=== PATIENT | female | born 1980 | race African-American/Black ===

== ENCOUNTER 2021-03-06 07:23 | Observation (INO) ==
[2021-03-06] MEDS ORDERED: ASPIRIN CHEW 81 MG TABLET PO STA (08:10)
[2021-03-06] MEDS ORDERED: METOPROLOL TARTRATE 5 MG/5 ML VIAL IV STA (08:10)
[2021-03-06 09:27] LABS: Basophils % 0.6 % (0.0-0.8); Eosinophils # 0.4 10*3/uL (0.0-0.87); Hematocrit 40.4 VOL% (35.7-47.0); Hemoglobin 12.6 GM/DL (12.0-16.0); Immature Granulocytes % 0.3 %; Immature Granulocytes Absolute 0.02 #; Lymphocytes # 2.7 10*3/uL (1.4-4.0); Lymphocytes % 40.9 % (21.3-54.2); Mean Corpuscular HGB Conc 31.2 GM/DL (32-36); Monocytes % 7.7 % (1.7-12.7); Neutrophils % 44.5 % (38.7-73.9); Platelet Count 324 T/CUMM (130-400); Red Blood Count 4.59 MC/CUMM (3.8-5.5); Red Cell Distribution Width 15.2 % (9.3-17.3); White Blood Count 6.5 T/CUMM (4-12)
[2021-03-06] MEDS ORDERED: ACETAMINOPHEN 325 MG TABLET PO PRN (10:16)
[2021-03-06] MEDS ORDERED: ONDANSETRON 4 MG/2 ML VIAL IV PRN (10:16)
[2021-03-06] MEDS ORDERED: DEXTROSE 50% 25 GM/50 ML VIAL IV PRN ×2 (10:16→10:25)
[2021-03-06] MEDS ORDERED: DOCUSATE SODIUM 100 MG CAPSULE PO PRN (10:16)
[2021-03-06] MEDS ORDERED: GLUCAGON 1 MG VIAL IM PRN ×3 (10:16→12:23)
[2021-03-06] MEDS ORDERED: NITROGLYCERIN SL 0.4 MG TABLET SL PRN (10:23)
[2021-03-06] MEDS ORDERED: MORPHINE 2 MG/1 ML SYRINGE IV PRN (10:24)
[2021-03-06 12:12] LABS: Albumin 3.8 G/DL (3.4-5.0); Bilirubin,Total 0.6 MG/DL (0.20-1.00); Osmolality,Calculated 274.7 MOS/KG (273-304); Potassium 3.9 MMOL/L (3.5-5.1); Total Protein 7.5 G/DL (6.4-8.2)
[2021-03-06] MEDS ORDERED: NITROGLYCERIN SL 0.4 MG TABLET SL STA (13:02)
[2021-03-06 14:28] VITALS: BP 106/80
[2021-03-06] MEDS ORDERED: ALUM/MAG/SIMETH/LIDO VISC 1:1 30 ML BOTTLE PO ONE (15:14)
[2021-03-06] MEDS ORDERED: INSULIN LISPRO 100 UNIT/ML SUBCUT SCH (16:30)
[2021-03-07] MEDS ORDERED: PANTOPRAZOLE 40 MG TABLET PO SCH (09:00)
== END 2021-03-06 16:39 | disposition home or self-care (01) ==
LOC: N.ED 07:23 → N.EDINP 07:23
PROVIDERS: ADMIT Hospitalist; ATTEND Hospitalist